=== PATIENT | female | born 1980 | race Caucasian/White ===

== ENCOUNTER 2017-08-30 11:49 | Emergency (ER) | payer MEDICAID | END 2017-08-30 13:20 | disposition home or self-care (01) | LOC: D.ER 11:49 | DX: L03.011 Cellulitis of right finger (principal); F17.200 Nicotine dependence, unspecified, uncomplicated ==

== ENCOUNTER 2017-09-02 15:03 | Emergency (ER) | payer MEDICAID | END 2017-09-02 16:41 | disposition home or self-care (01) | LOC: D.ER 15:03 | DX: J11.1 Influenza due to unidentified influenza virus with other respiratory manifestations (principal) ==